=== PATIENT | male | born 1945 | race Caucasian/White ===

== ENCOUNTER 2017-04-23 21:13 | Emergency (ER) | payer OTHER ==
[~2017-04-23] VITALS: Ht 165.1 cm; Wt 104.7 kg
[~2017-04-23 21:13] MED LIST: ALVESCO6.1 G1 IH; BENADRYL25 MG PO; DIOVAN HCT 81 TABLET PO; HALDOL0.5 MG PO; LUBRICANT EYE15 M1 BOTH EYES; ZONISAMIDE100 MG PO
[2017-04-23 21:32] LABS: HEMATOCRIT 39.5 % (38.0-50.0); MCH 35.7 PG (29.0-34.0); MCHC 34.4 G/DL (30.0-36.0); MCV 103.7 FL (86-99); MEAN PLAT.VOLUME 10.2 uM^3 (9.0-12.4); PLATELET COUNT 113 K/uL (156-360); RBC DIS.WIDTH-SD 46.1 % (39-53); RED BLOOD COUNT 3.81 M/uL (4.00-5.50)
[2017-04-23 21:38] LABS: PROTHROMBIN TIME 10.7 SEC (10.2-12.9)
[2017-04-23 21:41] LABS: CHLORIDE 113 mEq/L (99-109); POTASSIUM 3.9 mEq/L (3.7-5.4); PTT 34.6 SEC (25-37); SODIUM 147 mEq/L (136-147)
[2017-04-23 21:42] LABS: GLUCOSE 109 mg/dL (70-99)
[2017-04-23 21:44] LABS: ANION GAP 12 MEQ/L (2-14)
[2017-04-23 21:46] LABS: GFR ESTIMATE (CALCULATED) > 59 mL/min/; SERUM ETHYL ALCOHOL 237 mg/dL
[2017-04-23 21:47] LABS: UREA NITROGEN (BUN) 19 mg/dL (9-23)
[2017-04-23 21:54] LABS: TROP-I INTERPRETATION NEGATIVE; TROPONIN-I < 0.01 ng/mL (0.0-0.30)
[2017-04-24 00:10] VITALS: BP 140/81
== END 2017-04-24 00:10 | disposition home or self-care (01) ==
LOC: EME → EDBD 21:13 → EME 21:13
PROVIDERS: Emergency Medicine
DX: F10.129 Alcohol abuse with intoxication, unspecified (principal); Z91.81 History of falling; Z87.891 Personal history of nicotine dependence
CPT/HCPCS: 70450; 71020; 80048; 83880; 84484; 85027; 85610; 85730; 93005; 99281; 99283; G0480

== ENCOUNTER 2017-07-21 13:08 | Emergency (ER) | payer OTHER ==
[~2017-07-21] VITALS: Ht 165.1 cm; Wt 106.4 kg
[2017-07-21 14:12] LABS: HEMATOCRIT 35.1 % (38.0-50.0); HEMOGLOBIN 12.4 G/DL (12.5-16.6); MCH 36.6 PG (29.0-34.0); MCHC 35.3 G/DL (30.0-36.0); MCV 103.5 FL (86-99); PLATELET COUNT 131 K/uL (156-360); RBC DIS.WIDTH-CV 12.6 % (11.8-14.6); RBC DIS.WIDTH-SD 47.3 % (39-53); RED BLOOD COUNT 3.39 M/uL (4.00-5.50); WHITE BLOOD COUNT 5.7 K/uL (4.1-10.2)
[2017-07-21 14:20] LABS: CHLORIDE 108 mEq/L (99-109); POTASSIUM 4.1 mEq/L (3.7-5.4); SODIUM 142 mEq/L (136-147)
[2017-07-21 14:22] LABS: GLUCOSE 145 mg/dL (70-99)
[2017-07-21 14:26] LABS: CREATININE 1.7 mg/dL (0.6-1.3); GFR ESTIMATE (CALCULATED) 43 mL/min/ (58.99-99999)
[2017-07-21 14:27] LABS: UREA NITROGEN (BUN) 31 mg/dL (9-23)
[2017-07-21 15:53] LABS: SERUM ETHYL ALCOHOL 50 mg/dL
[2017-07-21 18:31] VITALS: BP 147/82
== END 2017-07-21 18:32 | disposition home or self-care (01) ==
LOC: EME 13:08
DX: E86.0 Dehydration (principal); N28.9 Disorder of kidney and ureter, unspecified; R55 Syncope and collapse; I10 Essential (primary) hypertension; E83.119 Hemochromatosis, unspecified; Z87.891 Personal history of nicotine dependence; Z88.8 Allergy status to other drugs, medicaments and biological substances
CPT/HCPCS: 71046; 80048; 81003; 82948; 85027; 93005; 99281; 99284; G0480; J7030